=== PATIENT | female | born 1990 | race Caucasian/White ===

== ENCOUNTER 2024-04-25 18:50 | Emergency (ER) | payer MEDICAID, SELFPAY ==
--- NOTE | ~2024-04-25 | US_ITS ---
CLINICAL HISTORY: Hepatobiliary? stone ?? Elevated LFT US abdomen limited Comparison: None Findings: The visualized pancreas is normal. Aorta and majority of the IVC are obscured. Partially imaged liver is unremarkable. Right kidneys obscured. Pancreas obscured. No right upper quadrant ascites or right pleural effusion in the [id number]. No gallbladder wall thickening, pericholecystic fluid, or cholelithiasis of the partially imaged gallbladder. Portions of the gallbladder obscured. A sonographic Lipscomb's sign is not elicited by the technologist Imaged CBD is nondilated measuring 5 mm diameter in the [id number]. IMPRESSION: 1. No ultrasound findings of acute cholecystitis. 2. Imaged CBD is nondilated. This document has been electronically signed by: Maoy Méndez MD on 04/25/2024 22:36:45
--- NOTE | ~2024-04-25 | CT_ITS ---
CLINICAL HISTORY: RUQ TTP, elevated LFT CT abdomen and pelvis with contrast Comparison: Ultrasound of the abdomen from 04/25/2024 Findings: Consolidation of the imaged left lower lobe measures 2.8 cm with multiple adjacent pulmonary opacities concerning for pneumonia. Mild fat deposition of the liver adjacent to the falciform ligament. The gallbladder is unremarkable for CT. The adrenal glands are normal. Spleen approaches the upper limits of normal. Pancreas is unremarkable. No hydronephrosis. Filtered contrast could obscure small stones. Nonenlarged lymphadenopathy. No small bowel obstruction. Metal artifacts from umbilicus piercing. Imaged appendix is within normal limits. Severe stool burden present, including the cecum. Small cystic structures of the both ovary is likely due to follicles. No soft tissue mass of either adnexa. The uterus is anteverted, with fluid in the endometrium. Mild wall thickening of the urinary bladder is nonspecific. No acute osseous abnormality. Phleboliths are noted in the pelvis. IMPRESSION: 1. Airspace disease and consolidation in the left lower lobe concerning for pneumonia. Recommend attention on follow-up to ensure resolution 2. Severe stool burden. No small bowel obstruction. This document has been electronically signed by: Mayo Méndez MD on 04/26/2024 01:52:22
--- NOTE | ~2024-04-25 | XR_ITS ---
CLINICAL HISTORY: CP 2 view chest x-ray Comparison: None Findings: No consolidation or effusion. Heart size is normal. No acute fracture. IMPRESSION: 1. No acute findings. This document has been electronically signed by: Souleymane Naranjo MD on 04/25/2024 19:47:30
--- NOTE | ~2024-04-25 | CT_ITS ---
CLINICAL HISTORY: cough, SOB CT chest with contrast Comparison: Chest x-ray from 04/25/2024 Findings: Mild residual thymic tissue. Mild fluid of the mediastinum noted. Nonenlarged mediastinal lymphadenopathy. Airspace disease of the left lower lobe includes consolidation measuring 2.6 cm. Multifocal adjacent consolidation and ground-glass opacities scattered throughout the left lower lobe. No pneumothorax or pleural effusion. Please refer to CT of the abdomen and pelvis report for included abdomen including mild fat deposition of the liver and spleen approaching the upper limits of normal. No acute osseous abnormality. IMPRESSION: Pulmonary opacities, including consolidation in the left lower lobe, concerning for pneumonia. Recommend attention on follow-up to ensure resolution. This document has been electronically signed by: Mayo Méndez MD on 04/26/2024 01:52:00
[2024-04-25 19:11] VITALS: BP 111/66; PULSE 110; RESP 16; TEMP 37.4; O2SAT 99; BMI 29.1
--- NOTE | 2024-04-25 19:11 | ED_ITS ---
HPI - URI/Sore Throat General Chief Complaint: Upper Respiratory Symptoms Stated Complaint: FLU SYMPTOMS SOB CP Time Seen by Provider: 04/25/24 23:25 Source: patient Mode of arrival: ambulatory Limitations: no limitations History of Present Illness ED Provider: Lizett Diezt NP HPI Narrative: Patient is a 34-year-old female who presents emergency department for evaluation. She reports over the past 45 days she has been experiencing a productive cough with yellow phlegm, shortness of breath, body aches, subjective fever, diffuse anterior chest pain exacerbated by cough and deep breathing.. She admits that there has been others ill at her work with group a strep. She denies associated sore throat. She does admit that over the past month she has been experiencing intermittent pain to her right upper quadrant, this occurs most days but she has been ignoring this. Denies associated nausea diarrhea. Denies concern for . Related Data Previous Rx's ?Medication ?Instructions ?Recorded amoxicillin 500 mg tablet 1,000 mg (2 x 500 mg) PO TID 5 04/26/24 days #30 tabs polyethylene glycol 3350 17 17 g PO BID #119 grams 04/26/24 gram/dose oral powder (Miralax) Allergies Allergy/AdvReac Type Severity Reaction Status Date / Time No Known Allergies Allergy Verified 04/25/24 19:13 Review of Systems 2 Review of Systems: Yes all other systems are reviewed and are negative PMFSH Past Medical History Attestation statement: The following information was validated with the patient. Source: old records reviewed Social History Social History Smoked in Last 30 Days: No Use of substances other than those prescribed or required for medical reasons: No Advance Directives: No Advance Directives Information Provided: Yes Do you have a plan to hurt others: No Plan Physical Exam 2 Vital Signs: Vital Signs: Last Vital Signs Temp 100.4 F 04/26/24 01:22 Pulse 103 H 04/26/24 01:10 Resp 18 04/26/24 01:10 BP 99/56 L 04/26/24 01:10 Pulse Ox 93 04/26/24 01:10 O2 Del Method Room Air 04/26/24 01:10 BMI result Body Mass Index 29.1 Appearance: Alert.?Oriented to person, place and time. No acute distress.?Normal affect. Eyes: Pupils equal, round and reactive to light.? ENT: Pharynx normal.?? Neck: Normal inspection.? Neck supple.? No?Cervical adenopathy CVS: Heart sounds normal. Tachycardia? Pulses normal.?? Respiratory: No respiratory distress.? Lung sounds clear to auscultation bilaterally?? Abdomen: Soft and non-tender. Normoactive bowel sounds. Skin: Skin warm and dry.? Normal skin color.? ? Extremities: No lower extremity edema.? Neuro: Moves all extremities spontaneously. Sensation intact bilaterally. Ambulates with normal steady gait. Course Course Course Narrative: This is an RME: Additional HPI, ROS, PE not included below will be deferred to primary provider. RME assessment and note performed by: Christina Monroe PA-C This is a [id number] who presents to the ER with complaints of shortness of breath, productive cough, fevers, SOB x 4 days. 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 Not on control. Mildly tachy at 109bpm. Plan: Labs, EKG, chest x-ray, further ER evaluation needed. Reevaluation(s) Reevaluation #1: CT chest with contrast Comparison: Chest x-ray from 04/25/2024 Findings: Mild residual thymic tissue. Mild fluid of the mediastinum noted. Nonenlarged mediastinal lymphadenopathy. Airspace disease of the left lower lobe includes consolidation measuring 2.6 cm. Multifocal adjacent consolidation and ground-glass opacities scattered throughout the left lower lobe. No pneumothorax or pleural effusion. Please refer to CT of the abdomen and pelvis report for included abdomen including mild fat deposition of the liver and spleen approaching the upper limits of normal. No acute osseous abnormality. IMPRESSION: Pulmonary opacities, including consolidation in the left lower lobe, concerning for pneumonia. Recommend attention on follow-up to ensure resolution. CT abdomen and pelvis with contrast Comparison: Ultrasound of the abdomen from 04/25/2024 Findings: Consolidation of the imaged left lower lobe measures 2.8 cm with multiple adjacent pulmonary opacities concerning for pneumonia. Mild fat deposition of the liver adjacent to the falciform ligament. The gallbladder is unremarkable for CT. The adrenal glands are normal. Spleen approaches the upper limits of normal. Pancreas is unremarkable. No hydronephrosis. Filtered contrast could obscure small stones. Nonenlarged lymphadenopathy. No small bowel obstruction. Metal artifacts from umbilicus piercing. Imaged appendix is within normal limits. Severe stool burden present, including the cecum. Small cystic structures of the both ovary is likely due to follicles. No soft tissue mass of either adnexa. The uterus is anteverted, with fluid in the endometrium. Mild wall thickening of the urinary bladder is nonspecific. No acute osseous abnormality. Phleboliths are noted in the pelvis. IMPRESSION: 1. Airspace disease and consolidation in the left lower lobe concerning for pneumonia. Recommend attention on follow-up to ensure resolution 2. Severe stool burden. No small bowel obstruction. will initiate antibiotics and some remainder of course to pharmacy in addition to MiraLax for constipation, advised outpatient follow-up with PCP regarding transaminitis. Stable for discharge. Medications Administered Discontinued Medications Generic Name Dose Route Start Last Admin Trade Name Freq PRN Reason Stop Dose Admin Acetaminophen 975 mg 04/25/24 23:53 04/26/24 00:01 Acetaminophen 325 Mg Tablet PO 04/25/24 23:54 975 mg ONCE ONE Administration Ceftriaxone Sodium 1 gm 04/26/24 00:39 04/26/24 01:15 Ceftriaxone Sodium 1 Gm Vial IVPUSH 04/26/24 00:40 1 gm ONCE ONE Administration Sodium Chloride 1,959.51 mls @ 1,959.51 mls/hr 04/26/24 00:39 04/26/24 01:16 Ns 30 ml/kg infuse over 1 hr (1959.51 ml) 04/26/24 01:38 1,959.51 mls/hr IV Administration .Q1H STA Iohexol 85 ml 04/26/24 01:17 04/26/24 01:18 Iohexol 350 Mg/Ml 100 Ml Infus..Btl IV 04/26/24 01:18 85 ml ONCE ONE Administration Ketorolac Tromethamine 15 mg 04/26/24 00:41 04/26/24 01:15 Ketorolac Tromethamine 15 Mg/Ml Vial IVPUSH 04/26/24 00:42 15 mg ONCE ONE Administration Potassium Chloride 40 meq 04/26/24 00:41 04/26/24 01:15 Potassium Chloride Er 20 Meq Tab.Er.Prt PO 04/26/24 00:42 40 meq ONCE ONE Administration Medical Decision Making Medical Decision Making [facility] Narrative: I assumed care of patient at 00:30 Patient is a 34-year-old female who presents emergency department for evaluation of cough shortness of breath body aches and fever as per HPI. She does additionally admit that over the past month she has been experiencing primarily right upper quadrant abdominal pain, without ability to identify exacerbating or alleviating factors. Has not sought previous evaluation. Has had recent ill contacts with group a strep as per HPI. At the time of my evaluation she is febrile, tachycardic, has diffuse upper abdominal tenderness upon palpation negative emergency benign abdominal examination. CBC is without leukocytosis, has a mild microcytic anemia that does not meet transfusion criteria, no thrombocytopenia. She is mildly hypokalemic at 3.0. Transaminitis with AST 113, ALT 222, alk-phos 179, normal lipase, no priors available for review. HCG is negative. COVID-19/influenza/RSV testing is negative. I additionally placed orders for group a strep which he is negative, mono screen is negative. Abdominal pain and tenderness may be inflammatory due to excessive cough, however giving the ongoing right upper quadrant pain over the past month and associated transaminitis, will additionally obtain lactic acid, blood cultures, CT of the chest abdomen and pelvis for further evaluation will pneumonia, cholecystitis. Differential Diagnosis Differential Diagnoses: The differential diagnosis associated with the presentation includes (See narrative above) Admission/Observation Consideration of admission/observation: Escalation of care including admission/observation considered (See narrative above) Lab Data MDM Lab Attestation statement: I reviewed the patient's lab results. (See narrative above) 04/25/24 19:34 04/25/24 19:34 Labs: Lab Results 04/25/24 04/25/24 04/26/24 Range/Units 19:34 23:48 01:00 WBC 6.9 (4.8-10.8) X10*3/uL RBC 5.07 (4.20-5.50) X10*6/uL Hgb 10.2 L (12.0-16.0) g/dl Hct 31.9 L (37.0-47.0) % MCV 62.9 L (80.0-98.0) fL MCH 20.1 L (27.0-33.0) pg MCHC 32.0 (31.0-35.0) g/dl RDW 16.7 H (11.0-16.0) % Plt Count 181 (160-400) X10*3/uL MPV Not Reportable Immature Gran % (Auto) 0.1 (0.0-0.4) % Neut % (Auto) 82.6 H (45-73) % Lymph % (Auto) 11.8 L (20-40) % Gilliam % (Auto) 5.3 (2-11) % Eos % (Auto) 0.1 (0-4) % Baso % (Auto) 0.1 (0-2) % Lymph # (Auto) 0.8 L (1.2-4.9) X10*3/uL Gilliam # (Auto) 0.4 (0.1-1.2) X10*3/uL Eos # (Auto) 0.0 (0.0-0.4) X10*3/uL Baso # (Auto) 0.0 (0.0-0.2) X10*3/uL Abs Immat Gran (auto) 0.01 (0.00-0.03) X10*3/uL Absolute Neuts (auto) 5.7 (2.0-8.3) x10*3/uL Absolute Nucleated RBC 0.000 (0.0-0.012) X10*3/uL Nucleated RBC % (auto) 0.0 (0.0-0.2) /100WBC Sodium 139 (135-145) mmol/L Potassium 3.0 L (3.3-5.1) mmol/L Chloride 107 (96-108) mmol/L Carbon Dioxide 24 (22-29) mmol/L Anion Gap 11 L (12-20) BUN 12 (9-16) mg/dL Creatinine 0.82 (0.5-1.4) mg/dL Estim Creat Clear Calc 77.9 Estimated GFR > 60 Random Glucose 125 H (60-115) mg/dL Lactic Acid 2.0 (0.5-2.0) mmol/L Calcium 9.1 (8.4-10.2) mg/dL Total Bilirubin 0.4 (0.0-1.0) mg/dL Direct Bilirubin 0.2 (0.0-0.5) mg/dL AST 113 H (5-31) U/L ALT 222 H (0-31) U/L Alkaline Phosphatase 179 H (39-117) U/L Troponin I High Sens < 2.7 (<3.5-17.0) ng/L Total Protein 7.6 (6.5-8.0) g/dL Albumin 4.0 (3.5-5.0) g/dL Lipase 34 (8-78) U/L Beta HCG, Quant < 2 mIU/mL Monoscreen Negative (Negative) Influenza Type A (PCR) NEGATIVE (Negative) Influenza Type B (PCR) NEGATIVE (Negative) RSV RNA Qual (PCR) NEGATIVE (Negative) SARS-CoV-2 RNA (RT-PCR) NEGATIVE (Negative) S. pyogenes GrpA AGUSTÍN Negative (Negative) Independent Interpretation I performed an independent interpretation of an: Plain X-Ray (No consolidation or infiltrate) Radiology Impression Discussion of test interpretation with radiology: I have reviewed the radiologist's reading. Radiologist Impression: 2 view chest x-ray Comparison: None Findings: No consolidation or effusion. Heart size is normal. No acute fracture. IMPRESSION: 1. No acute findings. External Record Review External record reviewed: Outpatient record Discharge Plan Discharge Clinical Impression: Pneumonia, Constipation, Transaminitis Patient Disposition: Home, Self-Care Instructions: Constipation (ED), High Fiber Diet (ED), Pneumonia (ED) Additional Instructions: CT imaging today shows evidence of pneumonia for which you were being given a course of antibiotics for treatment. You were incidentally found to be notably constipated as well for which I have sent a prescription for MiraLax to your pharmacy, take this twice daily, discontinue use if you develop diarrhea. Follow instructions regarding high- fiber diet. As mentioned, your liver function tests were elevated today, an ultrasound was performed of the right upper portion of your abdomen in addition to a CT scan did not show acute abnormal findings of your gallbladder or liver. Sometimes this may be dietary or due to condition known as fatty liver. Please make your primary care doctor aware of this, see what they may further monitor outpatient. You may return with new or worsening symptoms or concerns. Prescriptions: New polyethylene glycol 3350 [Miralax] 17 gram/dose powder 17 g PO BID Qty: 119 0RF amoxicillin 500 mg tablet 1,000 mg PO TID 5 Days Qty: 30 0RF Referrals: Physician,Unknown J [Primary Care Provider] - Print Language: Armenian
--- NOTE | 2024-04-25 19:13 | ECG_ITS ---
Test Reason : CP Blood Pressure : */* mmHG Vent. Rate : 101 BPM Atrial Rate : 101 BPM P-R Int : 152 ms QRS Dur : 80 ms QT Int : 312 ms P-R-T Axes : 38 -6 -11 degrees QTcB Int : 404 ms Sinus tachycardia Nonspecific T wave abnormality Abnormal ECG No previous ECGs available Referred By: Christina Monroe Electronically Signed By: FRANCINE LEY
[2024-04-25 19:40] LABS: MANUAL DIFF FLAG NO
[2024-04-25 19:42] LABS: Basophils Percent Auto 0.1 % (0-2); Eosinophils Percent Auto 0.1 % (0-4); Hematocrit 31.9 % (37.0-47.0); Hemoglobin 10.2 g/dl (12.0-16.0); Imm Gran Abs Auto 0.01 X10*3/uL (0.00-0.03); Imm Gran Pct Auto 0.1 % (0.0-0.4); Lymphocytes Absolute Auto 0.8 X10*3/uL (1.2-4.9); Lymphocytes Percent Auto 11.8 % (20-40); Mean Corpuscular Hemoglobin 20.1 pg (27.0-33.0); Monocytes Absolute Auto 0.4 X10*3/uL (0.1-1.2); Monocytes Percent Auto 5.3 % (2-11); Neutrophils Absolute Auto 5.7 x10*3/uL (2.0-8.3); Neutrophils Percent Auto 82.6 % (45-73); Platelet Count 181 X10*3/uL (160-400); Red Blood Count 5.07 X10*6/uL (4.20-5.50); Red Cell Distribution Width 16.7 % (11.0-16.0); White Blood Count 6.9 X10*3/uL (4.8-10.8)
[2024-04-25 19:43] LABS: Mean Corpuscular Volume 62.9 fL (80.0-98.0)
[2024-04-25 20:04] LABS: Alanine Aminotransferase 222 U/L (0-31); Alkaline Phosphatase 179 U/L (39-117); Anion Gap 11 (12-20); Aspartate Amino Transferase 113 U/L (5-31); Bilirubin Direct 0.2 mg/dL (0.0-0.5); Bilirubin Total 0.4 mg/dL (0.0-1.0); Blood Urea Nitrogen 12 mg/dL (9-16); Calcium 9.1 mg/dL (8.4-10.2); Carbon Dioxide 24 mmol/L (22-29); Chloride 107 mmol/L (96-108); Creatinine Clr Calc Pharmacy 77.9; Estimated Glomerular Filt Rate > 60; Glucose Random 125 mg/dL (60-115); HCG Quantitative < 2 mIU/mL; Sodium 139 mmol/L (135-145); Total Protein 7.6 g/dL (6.5-8.0); Troponin-I High Sensitivity < 2.7 ng/L (<3.5-17.0)
[2024-04-25 20:16] LABS: Influenza A PCR NEGATIVE (Negative); Influenza B PCR NEGATIVE (Negative); Resp Syncy Virus RNA Qual PCR NEGATIVE (Negative); SARS COV2 PCR INHOUSE NEGATIVE (Negative)
[2024-04-25 21:09] LABS: Lipase 34 U/L (8-78)
[2024-04-25 23:38] VITALS: BP 101/69; PULSE 109; RESP 20; TEMP 38.8; O2SAT 95
[2024-04-26] MEDS: Acetaminophen 325 MG TABLET 975 MG PO (00:01)
--- NOTE | 2024-04-26 00:03 | PC.NURSE ---
medicated per mar.
[2024-04-26 00:06] LABS: IDNOW Serial# 55D5AD1C; Strep A Nucleic Acid Negative (Negative)
[2024-04-26 00:09] LABS: Monotest Negative (Negative)
[2024-04-26 00:16] VITALS: O2SAT 95
[2024-04-26 01:10] VITALS: BP 99/56; PULSE 103; RESP 18; TEMP 38; O2SAT 93
[2024-04-26] MEDS: Ketorolac Tromethamine 15 MG/ML VIAL IVPUSH (01:15)
[2024-04-26] MEDS: cefTRIAXone sodium 1 GM VIAL IVPUSH (01:15)
[2024-04-26] MEDS: Potassium Chloride ER 20 MEQ TAB.ER.PRT 40 MEQ PO (01:15)
[2024-04-26] MEDS: iohexoL 350 MG/ML 100 ML INFUS..BTL 85 ML IV (01:18)
[2024-04-26 01:22] VITALS: TEMP 38
--- NOTE | 2024-04-26 01:23 | PC.NURSE ---
pt back from CT Scan, medicated per apr.
[2024-04-26 02:15] VITALS: BP 97/59; PULSE 98; RESP 18; TEMP 37.2; O2SAT 98
[2024-04-26] MEDS: Amoxicillin 500 MG CAPSULE 1000 MG PO (02:22)
[2024-04-26 02:30] VITALS: BP 97/59; PULSE 100; TEMP 37.2; O2SAT 97
--- NOTE | 2024-04-26 02:31 | PC.NURSE ---
notified DR. Kirkpatrick of blood pressure being 97/59 okay to discharge patient. Reviewed discharge instructions with pt. pt verbalized understanding, no sign of distress.
[2024-04-26 02:32] VITALS: BP 97/59; PULSE 100; RESP 16; TEMP 37.2; O2SAT 97
--- NOTE | 2024-04-26 02:33 | PC.NURSE ---
pt had a steady gait and denied any dizziness
== END 2024-04-26 02:33 | disposition home or self-care (01) ==
PROVIDERS: Nurse Practitioner Family; Physician Assistant Medical; Emergency Provider Emergency Medicine
DX: J18.9 Pneumonia, unspecified organism (principal); K59.00 Constipation, unspecified; R74.01 Elevation of levels of liver transaminase levels; R05.9 Cough, unspecified; Z03.818 Encounter for observation for suspected exposure to other biological agents ruled out; D64.9 Anemia, unspecified
CPT/HCPCS: 0241U; 36415; 71046; 71260; 74177; 76705; 80048; 80076; 83605; 83690; 84484; 84702; 85025; 86308; 87040; 87651; 93005; 96374; 96375; 99285; J0696; J1885; Q9967

== ENCOUNTER → 2024-04-25 19:13 | Outpatient (BNV) | payer MEDICAID, SELFPAY | PROVIDERS: Visit Provider Radiology Diagnostic Radiology | DX: K83.9 Disease of biliary tract, unspecified (principal); R07.9 Chest pain, unspecified | CPT/HCPCS: 71046; 76705 ==

== ENCOUNTER → 2024-04-25 19:13 | Outpatient (BNV) | payer MEDICAID, SELFPAY | PROVIDERS: Emergency Provider Emergency Medicine; Visit Provider Internal Medicine | DX: R00.0 Tachycardia, unspecified (principal) | CPT/HCPCS: 93010 ==

== ENCOUNTER → 2024-04-26 00:19 | Outpatient (BNV) | payer MEDICAID, SELFPAY | PROVIDERS: Emergency Provider Emergency Medicine; Visit Provider Radiology Neuroradiology | DX: R10.11 Right upper quadrant pain (principal); R91.8 Other nonspecific abnormal finding of lung field; R06.02 Shortness of breath | CPT/HCPCS: 71260; 74177 ==

== ENCOUNTER 2024-04-29 10:47 | Emergency (ER) | payer MEDICAID, SELFPAY ==
--- NOTE | ~2024-04-29 | XR_ITS ---
EXAMINATION: XR CHEST 2 VIEWS HISTORY: recent pna, not improving on abx COMPARISON: Comparison is made with the prior examination dated 04/25/2024. Correlation is also made with a chest CT dated 04/26/2024. FINDINGS: PA and lateral views of the chest are submitted. There is persistent patchy opacity in the left lower lobe, consistent with pneumonia. The right lung remains clear. There is no pleural effusion, pneumothorax, or pulmonary vascular congestion. The heart is normal in size. The bones are intact. XR/XR chest 2V IMPRESSION: Persistent left lower lobe pneumonia. Electronically signed by: Cong Michelle MD 04/29/2024 12:17 PM EDT
[2024-04-29 11:40] VITALS: BP 99/60; PULSE 112; RESP 18; TEMP 37.3; O2SAT 98; BMI 22.0
--- NOTE | 2024-04-29 11:40 | ED.GENADULT ---
HPI - General Adult General Chief complaint: Upper Respiratory Symptoms Stated complaint: pneumonia+ , not feeling better Time Seen by Provider: 04/29/24 16:24 History of Present Illness ED Provider: Erica CLEMENTE narrative: The patient is a 34-year-old female who has been sick with a cough and other respiratory symptoms for about a week. She has a history of having had childhood asthma but says she has not had asthma as an adult. The patient came to the emergency room 3 days ago because of the symptoms and had an extensive workup that showed a left lower lobe pneumonia. She was discharged on amoxicillin 1000 mg t.i.d.. She says that despite the antibiotic she has continued to feel unwell with the an ongoing cough, shortness of breath, and fevers. She said that he had a temperature of 104 degrees last night. She returns today for re-evaluation. Related Data Previous Rx's ?Medication ?Instructions ?Recorded amoxicillin 500 mg tablet 1,000 mg (2 x 500 mg) PO TID 5 04/26/24 days #30 tabs polyethylene glycol 3350 17 17 g PO BID #119 grams 04/26/24 gram/dose oral powder (Miralax) cefpodoxime 200 mg tablet 200 mg PO BID 7 days #14 tabs 04/29/24 doxycycline monohydrate 100 mg 100 mg PO BID #14 caps 04/29/24 capsule hydrocodone-homatropine 5 mg-1.5 5 ml PO Q6H PRN cough #100 mL 04/29/24 mg/5 mL (5 mL) oral syrup (Hycodan) Allergies Allergy/AdvReac Type Severity Reaction Status Date / Time No Known Allergies Allergy Verified 04/29/24 11:43 Review of Systems Review of Systems: Yes all other systems are reviewed and are negative [facility] Social History Social History Smoked in Last 30 Days: No Use of substances other than those prescribed or required for medical reasons: Yes Substance Use Type: Marijuana Advance Directives: No Advance Directives Information Provided: No Physical Exam ED Vital Signs: Vital Signs - 24 hr 04/29/24 15:56 04/29/24 17:01 04/29/24 18:33 Temperature 98.8 F Pulse Rate 91 47 L 100 Respiratory Rate 18 18 19 Blood Pressure 110/65 112/66 Pulse Oximetry 97 96 Oxygen Delivery Method Room Air 04/29/24 21:40 Temperature 98.1 F Pulse Rate 88 Respiratory Rate 19 Blood Pressure 119/72 Pulse Oximetry 96 Oxygen Delivery Method Room Air BMI result Body Mass Index 22.0 Const Other: The patient is awake and alert. She does not appear obviously acutely ill or in obvious distress. Orientation/consciousness: patient oriented x3 HENMT Other: Mucous membranes are moist. Face is symmetrical. Eyes General: appearance normal, both eyes and all related structures Neck Neck: Yes normal visual inspection and Yes full ROM Resp Other: No increased work of breathing. The patient has wheezes bilaterally with crackles at the left base. Cardio Rate: regular rate Rhythm: regular rhythm Heart sounds: S1 normal heart sound present and S2 normal heart sound present GI Other: Abdomen is soft and nontender Skin Other: Skin is dry and unremarkable Neuro General: patient oriented x3, tone normal, moves all extremities, no focal motor deficits and CN's II-XI intact bilaterally Extrem General: Yes normal to inspection, Yes no pedal edema and Yes no calf tenderness Course Course Course Narrative: This is a rapid medical exam performed by Eleazar Nicolas NP: Additional HPI, ROS, PE not included below will be deferred to primary provider. Patient is a 34-year-old female diagnosed with pneumonia on the complaining of ongoing fevers, Tmax 104, nausea, not feeling any better. Taking all abx as prescribed. Plan: viral swab, labs, repeat cxr Medications Administered Discontinued Medications Generic Name Dose Route Start Last Admin Trade Name Freq PRN Reason Stop Dose Admin Albuterol Sulfate 8 puff 04/29/24 16:57 04/29/24 16:59 Albuterol Sulfate 90 Mcg 8 Gm Inhaler INHALE 04/29/24 16:58 8 puff ONCE ONE Administration Ceftriaxone Sodium 1 gm 04/29/24 16:36 04/29/24 17:01 Ceftriaxone Sodium 1 Gm Vial IVPUSH 04/29/24 16:37 1 gm ONCE ONE Administration Doxycycline Hyclate 100 mg/ 250 mls @ 166.67 mls/hr 04/29/24 16:36 04/29/24 19:04 Sodium Chloride IV 04/29/24 18:05 Infused ONCE ONE Infusion Sodium Chloride 1,000 mls @ 999 mls/hr 04/29/24 16:45 04/29/24 19:04 Ns IV 04/29/24 17:45 Infused .Q1H1M BILL Infusion Medical Decision Making Medical Decision Making [facility] Narrative: The patient is a very pleasant 34-year-old female who was diagnosed with a left lower lobe pneumonia seen on CT scan 4 days ago. She was placed on amoxicillin 1000 mg t.i.d.. She has not improved on this antibiotic and reports having a fever as high as 104 yesterday evening. The patient does not appear toxic or septic. She is pleasant and does not appear in distress. She has crackles at the left base. She also had bilateral wheezes. A chest x-ray today shows persistent signs of a left lower lobe pneumonia. She has a normal white count. She has a moderately elevated C-reactive protein. Her procalcitonin is 0.10. Blood cultures drawn 4 days ago prior to the initiation of antibiotics are negative. Given that she has been on amoxicillin and is not currently febrile I think it is unlikely that another set of blood cultures would be helpful. I think the patient's antibiotic coverage needs to be expanded. Patient was given IV ceftriaxone and IV doxycycline in the emergency room. She was also given a L of IV fluid. She was also given an albuterol inhaler for her wheezes. She continued to have a benign clinical appearance with no signs of acute illness or respiratory distress. She will be discharged on doxycycline and cefpodoxime. Lab Data 04/29/24 12:34 04/29/24 12:34 Labs: Lab Results 04/29/24 Range/Units 12:34 WBC 6.9 (4.8-10.8) X10*3/uL RBC 4.87 (4.20-5.50) X10*6/uL Hgb 9.8 L (12.0-16.0) g/dl Hct 30.5 L (37.0-47.0) % MCV 62.6 L (80.0-98.0) fL MCH 20.1 L (27.0-33.0) pg MCHC 32.1 (31.0-35.0) g/dl RDW 15.9 (11.0-16.0) % Plt Count 225 (160-400) X10*3/uL MPV Not Reportable Immature Gran % (Auto) 0.3 (0.0-0.4) % Neut % (Auto) 80.2 H (45-73) % Lymph % (Auto) 14.2 L (20-40) % Esmeralda % (Auto) 5.1 (2-11) % Eos % (Auto) 0.1 (0-4) % Baso % (Auto) 0.1 (0-2) % Lymph # (Auto) 1.0 L (1.2-4.9) X10*3/uL Esmeralda # (Auto) 0.4 (0.1-1.2) X10*3/uL Eos # (Auto) 0.0 (0.0-0.4) X10*3/uL Baso # (Auto) 0.0 (0.0-0.2) X10*3/uL Abs Immat Gran (auto) 0.02 (0.00-0.03) X10*3/uL Absolute Neuts (auto) 5.5 (2.0-8.3) x10*3/uL Absolute Nucleated RBC 0.000 (0.0-0.012) X10*3/uL Nucleated RBC % (auto) 0.0 (0.0-0.2) /100WBC Sodium 137 (135-145) mmol/L Potassium 3.7 D (3.3-5.1) mmol/L Chloride 103 (96-108) mmol/L Carbon Dioxide 26 (22-29) mmol/L Anion Gap 12 (12-20) BUN 12 (9-16) mg/dL Creatinine 0.80 (0.5-1.4) mg/dL Estim Creat Clear Calc 91.0 Estimated GFR > 60 Random Glucose 123 H (60-115) mg/dL Calcium 9.2 (8.4-10.2) mg/dL Total Bilirubin 0.6 (0.0-1.0) mg/dL AST 29 (5-31) U/L ALT 70 H (0-31) U/L Alkaline Phosphatase 177 H (39-117) U/L C-Reactive Protein 8.14 H (< or = 0.50) mg/dL Total Protein 7.8 (6.5-8.0) g/dL Albumin 3.9 (3.5-5.0) g/dL Procalcitonin 0.10 ng/mL Influenza Type A (PCR) NEGATIVE (Negative) Influenza Type B (PCR) NEGATIVE (Negative) RSV RNA Qual (PCR) NEGATIVE (Negative) SARS-CoV-2 RNA (RT-PCR) NEGATIVE (Negative) S. pyogenes GrpA AGUSTÍN Negative (Negative) Discharge Plan Discharge Clinical Impression: Left lower lobe pneumonia Patient Disposition: Home, Self-Care Instructions: Community Acquired Pneumonia (ED) Additional Instructions: Your chest x-ray shows that you seem to have an ongoing pneumonia. Your vital signs and blood work are reassuring however. I think you may be treated a home instead of being hospitalized. I think you would benefit from a change of antibiotics. Please stop taking the amoxicillin you has been taking. Please start taking 2 new antibiotics, cefpodoxime and doxycycline. Each of these should be taken 2 times a day. You received IV doses of antibiotics in the emergency room this evening. Please start both of these new antibiotics early tomorrow morning. Please drink lot of fluids. Use the albuterol inhaler with a spacer provided every 4 hours as needed. This may help with wheezing. You may use Hycodan as needed for cough. Please follow up soon with the [facility]. Return to the emergency room if significantly worse. Prescriptions: New cefpodoxime 200 mg tablet 200 mg PO BID 7 Days Qty: 14 0RF Rx Instructions: must administer with a meal/food doxycycline monohydrate 100 mg capsule 100 mg PO BID Qty: 14 0RF hydrocodone-homatropine [Hycodan] 5-1.5 mg/5 mL (5 mL) syrup 5 ml PO Q6H PRN (Reason: cough) Qty: 100 0RF Rx Instructions: Partial Fill upon patient request. No Action polyethylene glycol 3350 [Miralax] 17 gram/dose powder 17 g PO BID Qty: 119 0RF amoxicillin 500 mg tablet 1,000 mg PO TID 5 Days Qty: 30 0RF Referrals: [facility] [Provider Group] (pneumonia) Stand Alone Forms: Work/School Release Interventions: ED Discharge Assessment Last Done: 04/29/24 21:40 Discharge Date/Time: 04/29/24 21:48 Print Language: Kazakh
[2024-04-29 12:43] LABS: MANUAL DIFF FLAG NO
[2024-04-29 12:51] LABS: Basophils Percent Auto 0.1 % (0-2); Eosinophils Percent Auto 0.1 % (0-4); Hematocrit 30.5 % (37.0-47.0); Hemoglobin 9.8 g/dl (12.0-16.0); Imm Gran Abs Auto 0.02 X10*3/uL (0.00-0.03); Imm Gran Pct Auto 0.3 % (0.0-0.4); Lymphocytes Percent Auto 14.2 % (20-40); Mean Corpuscular HGB Conc 32.1 g/dl (31.0-35.0); Mean Corpuscular Hemoglobin 20.1 pg (27.0-33.0); Mean Corpuscular Volume 62.6 fL (80.0-98.0); Monocytes Absolute Auto 0.4 X10*3/uL (0.1-1.2); Monocytes Percent Auto 5.1 % (2-11); Neutrophils Absolute Auto 5.5 x10*3/uL (2.0-8.3); Neutrophils Percent Auto 80.2 % (45-73); Platelet Count 225 X10*3/uL (160-400); Red Blood Count 4.87 X10*6/uL (4.20-5.50); Red Cell Distribution Width 15.9 % (11.0-16.0); White Blood Count 6.9 X10*3/uL (4.8-10.8)
[2024-04-29 13:07] LABS: Alanine Aminotransferase 70 U/L (0-31); Albumin Level 3.9 g/dL (3.5-5.0); Alkaline Phosphatase 177 U/L (39-117); Anion Gap 12 (12-20); Aspartate Amino Transferase 29 U/L (5-31); Bilirubin Total 0.6 mg/dL (0.0-1.0); Blood Urea Nitrogen 12 mg/dL (9-16); Calcium 9.2 mg/dL (8.4-10.2); Carbon Dioxide 26 mmol/L (22-29); Chloride 103 mmol/L (96-108); Estimated Glomerular Filt Rate > 60; Glucose Random 123 mg/dL (60-115); Potassium 3.7 mmol/L (3.3-5.1); Sodium 137 mmol/L (135-145); Total Protein 7.8 g/dL (6.5-8.0)
[2024-04-29 13:18] LABS: IDNOW Serial# 58CA691E; Strep A Nucleic Acid Negative (Negative)
[2024-04-29 13:31] LABS: Influenza A PCR NEGATIVE (Negative); Influenza B PCR NEGATIVE (Negative); Resp Syncy Virus RNA Qual PCR NEGATIVE (Negative); SARS COV2 PCR INHOUSE NEGATIVE (Negative)
[2024-04-29 15:56] VITALS: BP 110/65; PULSE 91; RESP 18; TEMP 37.1; O2SAT 97
[2024-04-29 16:57] LABS: C Reactive Protein 8.14 mg/dL (< or = 0.50)
[2024-04-29] MEDS: Albuterol Sulfate 90 MCG 8 GM INHALER 8 PUFF INHALE (16:59)
[2024-04-29 17:01] VITALS: PULSE 47; RESP 18; O2SAT 99
[2024-04-29] MEDS: cefTRIAXone sodium 1 GM VIAL IVPUSH (17:01)
[2024-04-29] MEDS: 0.9 % Sodium Chloride 1,000 ML 999 ML IV (17:03)
[2024-04-29] MEDS: Doxycycline Hyclate 100 MG in 0.9 % Sodium Chloride 250 ML 166.67 MG IV (17:03)
[2024-04-29 18:33] VITALS: BP 112/66; PULSE 100; RESP 19; O2SAT 96
[2024-04-29 21:40] VITALS: BP 119/72; PULSE 88; RESP 19; TEMP 36.7; O2SAT 96
== END 2024-04-29 21:48 | disposition home or self-care (01) ==
PROVIDERS: Registered Nurse Emergency; Emergency Provider Emergency Medicine
DX: J18.9 Pneumonia, unspecified organism (principal); R05.9 Cough, unspecified; R06.02 Shortness of breath; R50.9 Fever, unspecified; Z03.818 Encounter for observation for suspected exposure to other biological agents ruled out; Z79.899 Other long term (current) drug therapy
CPT/HCPCS: 0241U; 71046; 80053; 84145; 85025; 86140; 87651; 94640; 96361; 96374; 96375; 99284; J0696

== ENCOUNTER → 2024-04-29 11:41 | Outpatient (BNV) | payer MEDICAID, SELFPAY | PROVIDERS: Visit Provider Radiology Diagnostic Radiology | DX: J18.1 Lobar pneumonia, unspecified organism (principal) | CPT/HCPCS: 71046 ==

== ENCOUNTER 2024-12-01 15:36 | Emergency (ER) | payer MEDICAID, SELFPAY ==
[2024-12-01 15:45] VITALS: BP 131/59; PULSE 82; RESP 18; TEMP 36.6; O2SAT 97; BMI 19.1
--- NOTE | 2024-12-01 15:47 | ED.GENADULT ---
HPI - General Adult General Chief complaint: Allergic Reaction Stated complaint: bite by something, both hands swollen Time Seen by Provider: 12/01/24 15:47 Source: patient, RN notes reviewed and old records reviewed Mode of arrival: ambulatory Limitations: no limitations History of Present Illness ED Provider: Maria Isabel [facility] narrative: Patient is a 34year old female presenting to the ED with complaint of multiple pruritic areas to bilateral hands, and one to left thigh since yesterday. Took bendaryl this am, still having itching. No known exposure to allergens. Does have a cat. Denies any shortness of breath or difficulty breathing. MD complaint: rash Onset (ago): day(s) Related Data Previous Rx's ?Medication ?Instructions ?Recorded amoxicillin 500 mg tablet 1,000 mg (2 x 500 mg) PO TID 5 04/26/24 days #30 tabs polyethylene glycol 3350 17 17 g PO BID #119 grams 04/26/24 gram/dose oral powder (Miralax) cefpodoxime 200 mg tablet 200 mg PO BID 7 days #14 tabs 04/29/24 doxycycline monohydrate 100 mg 100 mg PO BID #14 caps 04/29/24 capsule hydrocodone-homatropine 5 mg-1.5 5 ml PO Q6H PRN cough #100 mL 04/29/24 mg/5 mL (5 mL) oral solution (Hycodan) prednisone 10 mg tablet See Rx Instructions .Route 12/01/24 .COMPLEX #15 tabs Allergies Allergy/AdvReac Type Severity Reaction Status Date / Time No Known Allergies Allergy Verified 12/01/24 15:47 Review of Systems Review of Systems: As per hPI Yes all other systems are reviewed and are negative Constitutional: Constitutional: Reports as per HPI [facility] Social History Social History Substance Use Type: Marijuana Physical Exam ED Vital Signs: Vital signs have been reviewed and appear to be correct. Blood pressure normal. Heart rate normal. Respiratory rate normal. Temperature normal. Oxygen saturation normal. Const General: cooperative, healthy appearing and no acute distress Orientation/consciousness: oriented to person, oriented to place, oriented to time and patient oriented x3 Limitations: no limitations HENMT Head: Yes normocephalic and Yes atraumatic Ears: external ears normal General nose exam: Normal external nose present Face and sinus: Yes face symmetric Mouth: oropharynx normal and moist mucous membranes Throat: Yes uvula midline Eyes Pupils: Equal, round and reactive pupils present Neck Neck: Yes normal visual inspection and Yes supple Resp Effort & Inspection: normal respiratory effort and able to speak in complete sentences Auscultation: clear to auscultation bilaterally Cardio Rate: regular rate Rhythm: regular rhythm Heart sounds: S1 normal heart sound present and S2 normal heart sound present GI Palpation (GI): Soft to palpation and nontender Auscultation: normoactive bowel sounds General: Yes no CVA tenderness Back/Spine/Pelvis Back: no CVA tenderness Skin Other: several diffuse erythematous papules to bilateral hands General skin exam: elasticity normal and turgor normal Neuro General: oriented to person, oriented to place, oriented to time, patient oriented x3, moves all extremities, no focal motor deficits and CN's II-XI intact bilaterally Cranial nerves: Yes Equal, round and reactive pupils present Cognition (Neuro): normal cognition Extrem General: Yes full ROM, Yes no pedal edema and Yes no calf tenderness Psych Mental Status: mental status grossly normal Affect: normal affect Thought process: Normal thought process present Medical Decision Making Medical Decision Making [facility] Narrative: Patient is a 34year old female presenting to the ED with complaint of multiple pruritic areas to bilateral hands, and one to left thigh since yesterday. On exam patient is awake, A+Ox3, VS WNL, afebrile, normal neurological exam without focal deficits, physical exam findings as above. Given reported symptoms and physical exam findings, initial differential includes but is not limited to contact dermatitis, insect bites. Not consistent with scabies, bed bugs. Will treat with tapering course of prednisone, advised daily zyrtec/claritin and famotidine. Return precautions discussed. Patient verbalized understanding of and agreement with plan. Differential Diagnosis Differential Diagnoses: The differential diagnosis associated with the presentation includes as per mdm Admission/Observation Consideration of admission/observation: Escalation of care including admission/observation considered Patient would have been admitted to the hospital and transferred to appropriate facility had their clinical presentation warranted hospital admission. External Record Review External record reviewed: Inpatient record, Office record and Outpatient record Prescription Management I considered prescription management with: Other Discharge Plan Discharge Clinical Impression: Rash and nonspecific skin eruption Patient Disposition: Home, Self-Care Instructions: Contact Dermatitis (DC), Acute Rash (ED) Additional Instructions: You were evaluated in the emergency department today for a rash. Your evaluation did not reveal evidence of conditions requiring emergent medical treatment. You are being prescribed a tapering dose of a steroid called prednisone to decrease inflammation. We also recommend that you take a daily antihistamine such as loratadine (Claritin) or cetirizine (Zyrtec). You can also add over the counter famotidine (Pepcid) which is a different type of antihistamine. You can apply a thick unscented lotion to the affected areas such as Eucerine or Vanicream several times daily. Follow up with your primary care provider this week. If your symptoms do not improve, follow up with a binder lockstitch. Return to the emergency department if you develop difficulty breathing or shortness of breath, swelling to lips, tongue, fever, rash inside your mouth or to your palms/soles or any other concerning symptoms. Prescriptions: New prednisone 10 mg tablet See Rx Instructions .ROUTE .COMPLEX Qty: 15 0RF Rx Instructions: 50mg (5 tabs) x1 day, then 40 mg (4 tabs) x1 day, then 30 mg (3 tabs) x1 day, then 20 mg (2 tabs) times 1 day, then 10 mg (1 tab) x1 day No Action polyethylene glycol 3350 [Miralax] 17 gram/dose powder 17 g PO BID Qty: 119 0RF amoxicillin 500 mg tablet 1,000 mg PO TID 5 Days Qty: 30 0RF cefpodoxime 200 mg tablet 200 mg PO BID 7 Days Qty: 14 0RF Rx Instructions: must administer with a meal/food doxycycline monohydrate 100 mg capsule 100 mg PO BID Qty: 14 0RF hydrocodone-homatropine [Hycodan] 5-1.5 mg/5 mL (5 mL) syrup 5 ml PO Q6H PRN (Reason: cough) Qty: 100 0RF Rx Instructions: Partial Fill upon patient request. Print Language: English
--- OUTSIDE RECORDS SUMMARY | 2024-12-01 15:54 | XMS_ITS | Clinical Summary ---
Author Organization [facility] Address [address] [place] [address] Care Team Providers Care Campus Rep Name Role Phone Taylor Calix PA-C Primary Care Provider Source Comments PLEASE NOTE, if this patient is a minor, it may be UNLAWFUL to discuss sensitive information that is contained in these records (such as FAMILY PLANNING, MENTAL HEALTH or SUBSTANCE ABUSE) with the minor patient's parent or other person without the patient's specific authorization.[facility] Allergies No known active allergies Medications cholecalciferol , vitamin D3, 25 mcg (1,000 unit) capsuleIndicati ons:Vitamin D deficiency Take 1 Cap by mouth once daily 90 Cap 1 0 Active fenofibrate micronized (ANTARA) 130 mg capsuleIndicati ons:Hypertrigly ceridemia Take 1 Cap by mouth once daily with breakfast 90 Cap 3 0 Active benzonatate (TESSALON) 100 mg capsuleIndicati ons:Subacute cough Take 1 Capsule by mouth 3 (three) times daily as needed for cough 30 Capsule 1 4 Active benzocaine-ment hoL (CHLORASEPTIC) 6-10 mg lozengeIndicati ons:Subacute cough Take 1 Lozenge by mouth every 2 (two) hours as needed for sore throat 18 Lozenge 2 4 Active dextromethorpha n-guaifenesin (MUCINEX DM) 30-600 mg per 12 hr tablet Take 1 Tablet by mouth 2 (two) times daily 20 Tablet 5 Active Active Problems Problem Noted Date Diagnosed Date Lipoma 07/22/2018 Vitamin D deficiency 07/12/2018 Hypertriglyceridemia 07/12/2018 Immune to varicella 07/12/2018 Thalassemia 07/11/2018 Overview (07/12/2018): Beta Thalassemia Graves disease 07/11/2018 Resolved Problems Problem Noted Date Diagnosed Date Resolved Date Acute cystitis without hematuria 07/22/2018 10/02/2020 Immunizations Immunization Administration Dates Next Due PPD 09/20/2019 TDAP 04/30/2015 Family History Medical History Relation Name Comments No Known Problems Daughter Diabetes Father Hypertension Father Kidney disease Father Anemia Mother No Known Problems Son 1 No Known Problems Son 2 No Known Problems Son 3 Relation Name Status Comments Daughter Alive Father Mother Alive Son 1 Alive Son 2 Alive Son 3 Alive Social History Tobacco Use Types Packs/Day Years Used Date Smoking Tobacco: Never Smokeless Tobacco: Never Alcohol Use Standard Drinks/Week Comments Yes 0 (1 standard drink = 0.6 oz pur e alcohol) Occ Social Connections Answer Date Recorded Connectedness 0 06/01/2022 Financial Resource Strain Answer Date R ecorded Financial Resource Strain 0 2022 Stress Answer Date Recorded Stress 0 06/01/2022 Physical Activity Answer Date Recorded Physical Activity 0 10/08/2018 Food Insecurity Answer Date Recorded Food 0 06/01/2022 Transportation Needs Answer Date Record ed Transportation 0 06/01/2022 Housing Stability Answer Date Recorded Housing 0 06/01/2022 Safety and Environment Answer Date Jadiel rded How often does anyone, inclu ding family and friends, physically hurt you? 1 11/22/2023 Utilities Answer Date Recorded Utilities 0 06/01/2022 Employment Answer Date Recorded Stress 0 06/01/2022 Comments No Sex and Gender Information Value Date Recorded Sex Assigned at Female 07/10/2018 12:55 PM PDT Legal Sex Female 1:01 PM PDT Gender Identity Female 07/10/2018 12:55 PM PDT Sexual Orientation Straight 07/10/2018 5: 54 PM PDT Last Filed Vital Signs Vital Sign Reading Time Taken Comments Blood Pressure 102/60 11/22/2023 8:56 AM EDT Pulse 96 11/22/2023 8:56 AM EDT Temperature 36.1 C (97 F) 11/22/2023 8:56 AM EDT Respiratory Rate 16 11/22/2023 8:56 AM EDT Oxygen Saturation 99% 11/22/2023 8:56 AM EDT Inhaled Oxygen Concentration - - Weight 66.7 kg (147 lb) 11/22/2023 8:56 AM EDT Height 149.9 cm (4' 11 ) 11/22/2023 8:56 AM EDT Body Mass Index 29.69 11/22/2023 8:56 AM EDT Plan of Treatment Health Maintenance Due Date Last Done Comments HPV Screening (self-collect) 1988 HPV Screening 1988 Tobacco Screening 1988 Imm-HPV (1 - 3-dose SCDM series) 01/28/2015 Alcohol and Drug Screen 02/14/2024 11/22/19 24, 06/01/2022, 09/20/2019, Additional history exists Depression Annual Screen 02/14/2024 11/22/2023 Diabetes Screening 08/18/2024 08/18/2021, 0 08/18/2021, 09/23/2019, Additional history exists Pap Smear 09/03/2024 09/03/2021, 07/20/2018 [id number] ( season) 2024 Imm-Influenza (#1) 2024 11/08/2012 Annual Wellness (Adult): Indicated (All Coverage) 11/21/2024 11/22/2023, 06/01/2022, 09/20/2019, Additional history exists Anxiety Screening 11/21/2024 11/22/2023 Relationship Safety Screening/Counseling 11/21/2024 11/22/2023, 06/01/2022, 07/10/2018 Imm-DTaP/Tdap/Td (3 - Td or Tdap) 04/29/2025 016, 11/07/2012 Cervical Cancer Screening 09/03/2026 Pap + HPV 09/03/2026 09/03/2021 Hypertension Screening (#1) 11/21/2026 Hepatitis C Screening Completed 08/18/2021, 020 HIV Screening Completed 11/23/2023, 05/15, 08/18/2021, Additional history exists Syphilis Screening Discontinued 11/23/2023, 0 06/09/2023, 08/18/2021, Additional history exists Cervical Ablation/Cold-Knife Conization Discontinued Cervical Cryotherapy Discontinued Colposcopy Discontinued Excision/Leep Discontinued HPV Genotyping Discontinued Vaginal Pap Discontinued Vulvoscopy Discontinued Procedures Procedure Name Priority Date/Time Associated Diagnosis Comments HIV 1/2 AG & AB W/RFLX (4TH GEN) Routine 11/23/2023 2:01 PM EDT Vaginal discharge RPR (MONITOR) W/REFL TITER Routine 11/23/2023 2:01 PM EDT Vaginal discharge THIN PREP IMAGE PAP + HPV RNA E6/E7 W/RFLX HPV 16, 18/45 Routine 09/03/2021 2:44 PM EDT Spotting Encounter for gynecological examination without abnormal finding HEPATITIS C AB W/RFLX HCV RNA, QT, RT PCR Routine 08/18/2021 11:59 AM EDT Routine screening for STI (sexually transmitted infection) HEMOGLOBIN GLYCOSYLATED A1C Routine 08/18/2021 11:59 AM EDT Lipoma of left axilla Vitamin D deficiency Hypertriglyceridemia from Last 3 Months or Most Recently Relevant to Health Maintenance Results * HIV 1/2 AG & AB W/RFLX (4TH GEN) (11/23/2023 2:01 PM EDT) Pathologist [facility] HIV AG/AB, 4TH GEN NON-REAC TIVE NON-REAC TIVE [facility] Comment: HIV-1 antigen and HIV-1/HIV-2 antibodies were not detected. There is no laboratory evidence of HIV infection. PLEASE NOTE: This information has been disclosed to you from records whose confidentiality may be protected by state law. If your state requires such protection, then the state law prohibits you from making any further disclosure of the information without the specific written consent of the person to whom it pertains, or as otherwise permitted by law. A general authorization for the release of medical or other information is NOT sufficient for this purpose. For additional information please refer to http://education.[employer].Me-Mover/faq/LNX521 (This link is being provided for informational/ educational purposes only.) The performance of this assay has not been clinically validated in patients less than 2 years old. Blood Blood / Unknown 11/23/2023 2 :01 PM EDT 11/23/2023 2:02 PM EDT Tranz Taylor Fifi [facility] - BLOOD DRAW Final Resul t Performing Organization Address [facility]/ZIP Co de Phone Number [facility] [address] [address], [facility] [address] [address] * RPR (MONITOR) W/REFL TITER (11/23/2023 2:01 PM EDT) RPR (MONITOR) W/REFL TITER NON-REACT SLADE NON-REACT SLADE [facility] Blood Blood / Unknown 11/23/2023 2 :01 PM EDT 11/23/2023 2:02 PM EDT [facility] - BLOOD DRAW Final Resul t Performing Organization Address [facility] de Phone Number [facility] [address] [address], [employer] [address] [phone] * THIN PREP IMAGE PAP + HPV RNA E6/E7 W/RFLX HPV 16, 18/45 (09/03/2021 2:44 PM EDT) CLINICAL INFORMATION See Note [employer] Comment:Normal exam LMP See Note [employer] Comment:[id number] PREV. PAP [employer] PREV. BX See Note [employer] Comment:NONE GIVEN SOURCE See Note [employer] Comment:Cervix STATEMENT OF ADEQUACY See Note [employer] Comment: Satisfactory for evaluation. Endocervical/transformation zone component present. INTERPRETATION/RESU LT See Note [employer] Comment:Negative for intraep ithelial lesion or malignancy. COMMENT See Note [employer] Comment: This Pap test has been evaluated with computer assisted technology. CLEATER See Note [facility] [employer] Comment: [facility], CT(ASCP) CT screening location: [address] [address] COMMENT [facility] HPV MRNA E6/E7 Not Detected Not Detected [facility] Comment: Methodology: Internet Assessor-Mediated Amplification This assay detects E6/E7 viral messenger RNA (mRNA) from 14 high-risk HPV types (16,18,31,33,35,39,45,51,52,56,58,59,66,68). Cervical sources are required for HPV testing. If a vaginal source from a patient who has had a total hysterectomy with removal of cervix was submitted, please contact the testing laboratory for alternative testing options. For additional information, please refer to http://education.[employer]/faq/EMO333t2 (This link if provided for information/ educational purposes only.) Swab Cervix uteri structure / Unknown 09/03/2021 2:44 PM EDT 09/04/2021 12:14 AM EDT Narrative [id number] [facility] - 09/07/2021 8:03 AM EDT EXPLANATORY NOTE: The Pap is a screening test for cervical cancer. It is not a diagnostic test and is subject to false negative and false positive results. It is most reliable when a satisfactory sample, regularly obtained, is submitted with relevant clinical findings and history, and when the Pap result is evaluated along with historic and current clinical information. Christine Ocampo [facility] - PATHOLOGY AND CYTOL OGY AMBULATORY Final Result [facility] [address] [address], [facility] [address] [address] * HEPATITIS C AB W/RFLX HCV RNA, QT, RT PCR (08/18/2021 11:59 AM EDT) HEPATITIS C ANTIBODY NON-REACT SLADE NON-REACT SLADE [facility] SIGNAL TO CUT-OFF 0.07 <1.00 [facility] Comment: HCV antibody was non-reactive. There is no laboratory evidence of HCV infection. In most cases, no further action is required. However, if recent HCV exposure is suspected, a test for HCV RNA (test code 37364) is suggested. For additional information please refer to http://education.[employer].Me-Mover/faq/VAT76s9 (This link is being provided for informational/ educational purposes only.) Blood Blood / Unknown 08/18/2021 1 1:59 AM EDT 08/18/2021 12:00 PM EDT [facility] - BLOOD DRAW Edited Result - Final Performing Organization Address City/[facility]/ZIP Co de Phone Number [facility] [address] [address], [employer] [address] [address] * HEMOGLOBIN, GLYCOSYLATED (A1C) (08/18/2021 11:59 AM EDT) HEMOGLOBIN A1C 5.3 <5.7 % of total Hgb [employer] Comment: For the purpose of screening for the presence of diabetes: <5.7% Consistent with the absence of diabetes 5.7-6.4% Consistent with increased risk for diabetes (prediabetes) > or =6.5% Consistent with diabetes This assay result is consistent with a decreased risk of diabetes. Currently, no consensus exists regarding use of hemoglobin A1c for diagnosis of diabetes in children. According to [place] [employer] (ADA) guidelines, hemoglobin A1c <7.0% represents optimal control in non- diabetic patients. Different metrics may apply to specific patient populations. Standards of Medical Care in Diabetes(ADA). Blood Blood / Unknown 08/18/2021 1 1:59 AM EDT 08/18/2021 12:00 PM EDT us [facility] - BLOOD DRAW Edited Result - Final Performing Organization Address City/[facility]/ZIP Co de Phone Number [facility] [address] [address], [employer] [address] [phone] from Last 3 Months or Most Recently Relevant to Health Maintenance Care Teams Campus Rep Relationship Specialty Start Date End Date Taylor Calix PA-C [address] [place] [address] PCP - General FAMILY MEDICINENEFTALY 07/13/21
[2024-12-01 15:56] VITALS: BP 131/59; PULSE 82; RESP 18; TEMP 36.6; O2SAT 97
== END 2024-12-01 15:57 | disposition home or self-care (01) ==
PROVIDERS: Emergency Provider Emergency Medicine; PCP Dentist General Practice
DX: R21 Rash and other nonspecific skin eruption (principal)
CPT/HCPCS: 99282; 99283